=== PATIENT | male | born 1955 | race Caucasian/White ===

== ENCOUNTER → 2020-09-22 | Outpatient (CLI) | payer MEDICARE, OTHER | LOC: KOH-I 13:14 | DX: M79.672 Pain in left foot (principal); M79.671 Pain in right foot | CPT/HCPCS: 73630 ==

== ENCOUNTER → 2020-10-04 | Outpatient (CLI) | payer MEDICARE, OTHER | LOC: EXRD 15:45 | DX: M20.42 Other hammer toe(s) (acquired), left foot (principal) | CPT/HCPCS: 93926 ==